=== PATIENT | female | born 1930 | race Caucasian/White ===

== ENCOUNTER → 2017-01-10 | Outpatient (CLI) | payer MEDICARE, BC ==
[2017-01-10 11:36] LABS: Anisocytosis Slight; CH 33.9; CHCM 33.6; HCT 39.7 % (34.0-46.0); HDW 3.25; HGB 12.9 gm/dL (11.4-16.0); MCH 32.9 pg (25.0-35.0); MCHC 32.5 g/dL (31.0-37.0); MCV 101.2 fL (80.0-100.0); Macrocytosis Slight; Mean Platelet Volume 8.1; RBC 3.92 m/uL (3.80-5.40); RDW 18.3 % (11.5-15.5); WBC 7.1 k/uL (3.8-10.6)
[2017-01-10 11:44] LABS: INR 1.1 (<1.2); Partial Thromboplastin Time 24.4 sec (22.0-30.0); Prothrombin Time 10.8 sec (9.0-12.0)
[2017-01-10 11:46] LABS: ALT 30 U/L (9-52); AST 20 U/L (14-36); Alkaline Phosphatase 52 U/L (38-126); Anion Gap 10 mmol/L; Blood Urea Nitrogen 14 mg/dL (7-17); Calcium 9.7 mg/dL (8.4-10.2); Carbon Dioxide 29 mmol/L (22-30); Chloride 104 mmol/L (98-107); Glucose 123 mg/dL (74-99); Non-African American GFR(MDRD) 58 (>60 ml/min/1.73 sqM); Potassium 4.7 mmol/L (3.5-5.1); Sodium 143 mmol/L (137-145); Total Bilirubin 0.8 mg/dL (0.2-1.3); Total Protein 7.5 g/dL (6.3-8.2)
[2017-01-10 11:58] LABS: Appearance,Urine Clear (Clear); Bilirubin,Urine Negative (Negative); Glucose,Urine (UA) Negative (Negative); Ketones,Urine Negative (Negative); Leukocyte Esterase,Urine Moderate (Negative); Nitrite,Urine Negative (Negative); PH, Urine 6.5 (5.0-8.0); Particle Count 1630; Protein,Urine Negative (Negative); RBC,Urine 1 /hpf (0-5); Specific Gravity,Urine 1.004 (1.001-1.035); Squamous Epithelial Cell,Urine <1 /hpf (0-4); UA Billing (MACRO vs. MICRO) MICRO; Urobilinogen,Urine <2.0 mg/dL (<2.0); WBC,Urine 6 /hpf (0-5)
== END ==
LOC: LABPAT 11:08
PROVIDERS: ATTEND Orthopaedic Surgery
DX: Z01.812 Encounter for preprocedural laboratory examination (principal); Z51.81 Encounter for therapeutic drug level monitoring; Z79.01 Long term (current) use of anticoagulants
CPT/HCPCS: 80053; 81001; 85027; 85610; 85730; 87070

== ENCOUNTER 2017-01-20 08:36 | Inpatient (IN) | payer MEDICARE, BC ==
[2017-01-14 16:13] VITALS: BMI 33.5
--- NOTE | 2017-01-16 19:07 | CONS ---
CONSULTATION REASON FOR CONSULTATION: Preoperative medical evaluation. HISTORY OF PRESENT ILLNESS: This 86-year-old female is scheduled to undergo knee surgery. The patient has significant pain. Her surgery is scheduled on 01/20/2017. She is going to have a left total knee arthroplasty. The patient has increasing pain and decreasing functional status of the knee. In view of this, she was evaluated by Dr. Ojeda and now scheduled for surgery. The patient denies any recent infections, bleeding disorder. She has had a previous history of pulmonary embolism. She is not on any anticoagulation at present except ( ) baby aspirin. The patient perioperatively will require anticoagulation. The patient does have a history of previous injury to her ankle requiring surgery. There were no significant complications after that surgery. The patient does have a history of gastroesophageal reflux with occasional symptoms. She was hospitalized back in 2012 for chest pain, and stress testing was unremarkable. PAST MEDICAL HISTORY: 1. As mentioned above, history of pulmonary embolism. 2. History of hypertension, controlled. 3. Degenerative arthritis. 4. Obesity. PAST SURGICAL HISTORY: Past surgical history is significant for: 1. Right ankle ORIF. 2. Hysterectomy. 3. Appendectomy. PERSONAL HISTORY: Never a smoker. Alcohol none. ALLERGIES: PENICILLIN, which causes her hives. MEDICATIONS: Medications include: 1. Simvastatin 20 mg daily. 2. Atenolol 50 mg daily. 3. Xanax 0.25 mg p.r.n. daily. 4. Cetirizine 10 mg p.r.n. 5. Ultracet p.r.n. for pain. SOCIAL HISTORY: The patient is single. She lives alone. FAMILY MEDICAL HISTORY: Father at age 77 with history of gastric carcinoma. Mother at the age of 103. She had ASHD. Her brother at the age of 80 with ASHD and diabetes mellitus. A sister at age of 79 following a fall. The patient has a sister, 77, with a history of frequent falls and a sister, 75, in good health. No children. REVIEW OF SYSTEMS: NEURO: Denies any headaches, dizziness. No double vision, blurred vision. No symptoms of TIA, syncope, seizures. PSYCH: No anxiety or depression. CARDIAC: Denies chest pain, angina, palpitations. RESPIRATORY: Denies shortness of breath, cough, hemoptysis. Does have dyspnea on exertion, which is stable, with no worsening symptoms. GI: No nausea, vomiting, abdominal pain, diarrhea, constipation, hematochezia or melena. : No symptoms of dysuria, hematuria, urgency, frequency. EXTREMITIES: Has pain in the left knee. CONSTITUTIONAL: No fever or chills. HEMATOLOGICAL: No anemia or bleeding disorder. ENDOCRINE: No history of diabetes mellitus, hypothyroidism. SKIN: No rashes or open sores. MUSCULOSKELETAL: Present complaint of pain in the left knee and arthritic pains (). ENT: Adequate hearing and taste. EYES: Adequate vision. PHYSICAL EXAMINATION: Elderly female who appears younger than her stated age, in no distress. Moderately obese. Vital signs revealed blood pressure 130/70. She is 5 feet 2 inches tall, weighs 197 pounds. BMI 33.8. HEENT: Normocephalic. Neck is supple. Pupils reactive. Nostrils are clear. Oral cavity is moist. Ears reveal no drainage. NECK: No JVD, carotid bruits or thyromegaly. CHEST EXAMINATION: Clear to auscultation and percussion. CARDIAC: Normal S1, S2 with no gallops. Systolic murmur 2/6, left sternal border and apex. ABDOMEN: Soft. No palpable masses. Bowel sounds normal. No organomegaly. No abdominal bruits. Obese abdomen. Extremities reveal no edema. Good pulses, both upper and lower extremities. Neurologically awake, alert, oriented with well-coordinated movements, both upper extremities. Decreased range of motion of the left knee. LABORATORY ASSESSMENT: EKG which revealed sinus bradycardia with no acute changes. Recent chemistry was done. I did review the (). Random blood sugar 128. Normal hepatic function. Adequate renal function with a GFR of 59, CKD of II. Hemoglobin was 12.6. ASSESSMENT: 1. Hypertension, controlled. 2. Sinus bradycardia. 3. Degenerative arthritis. 4. History of hyperlipidemia, on medical therapy. 5. Chronic kidney disease II. PLAN: The patient is stable. Continue present medical management. Patient's condition was discussed with the patient. Prognosis remains guarded. She is stable to undergo the planned surgical procedure. The patient to continue atenolol perioperatively. DVT prophylaxis is a must in this patient with previous history of pulmonary embolism. MMODL / IJN: [id number] /
[~2017-01-20 08:36] MED LIST: ACETAMINOPHEN TAB 500 MG TAB PO ONE; DEXAMETHASONE SOD PHOSPHATE 10 MG/ML 1 ML VIAL IV ONE; HYDROmorphone 1 MG/ML 1 ML SYRINGE IVP PRN; LIDOCAINE 1% 20 ML VIAL (10MG/ML) FOR IV START INTRADERMA PRN; MELOXICAM 7.5 MG TAB PO ONE; MIDAZOLAM 2 MG/2 ML VIAL IV PRN; ONDANSETRON 4 MG/2 ML VIAL IVP ONE; ROPIVACAINE 246.25 MG, EPINEPHrine 0.5 MG, KETOROLAC 30 MG, cloNIDine HCL/PF 80 MCG, WA... MISCELLANE ONE; SCOPOLAMINE 1.5MG/72HR PATCH TRANSDERM ONE; TRANEXAMIC ACID 1,000 MG in SODIUM CHLORIDE 0.9% 100 ML IVPB ONE; ceFAZolin 2 GM in SODIUM CHLORIDE 0.9% 100 ML IVPB ONE
[2017-01-20] MEDS: LACTATED RINGERS 1,000 ML IV SCH (10:06)
[2017-01-20] MEDS ORDERED: MIDAZOLAM 2 MG/2 ML VIAL IVP ONE (10:45)
[2017-01-20] MEDS ORDERED: ROPIVACAINE 1,100 MG, SODIUM CHLORIDE 0.9% 330 ML MISCELLANE PRN ×2 (11:07)
--- NOTE | 2017-01-20 11:07 | P.ONQ ---
Anesthesiology Proc Note - PNB - Peripheral Nerve Block Performed Left Adductor Canal Infusion Indication: Acute Post-Operative Pain, Analgesia Sedation Type: Sedate with meaningful contact maintained Preparation: Sterile Dressing Position: Supine Needle Types: Other (see comment) (breana) Needle Size: 100mm (4") Technique: Ultrasound Injectate: 0.5% Ropivacaine (see comment for volume) Blood Aspirated: No Pain Paresthesia on Injection Noted: No Resistance on Injection: Normal
[2017-01-20] MEDS ORDERED: SODIUM CHLORIDE 0.9% 100 ML BAG ONE (11:18)
[2017-01-20] MEDS ORDERED: TRANEXAMIC ACID 1,000 MG/10 ML VIAL ONE (11:18)
[2017-01-20] MEDS ORDERED: LIDOCAINE 0.5% (PF) 5 MG/ML (50 ML SDV) ONE (11:18)
[2017-01-20] MEDS ORDERED: LACTATED RINGERS 1,000 ML IV ONE (13:04)
[2017-01-20] MEDS ORDERED: HYDROmorphone 1 MG/ML 1 ML SYRINGE IVP PRN ×3 (13:15)
[2017-01-20] MEDS ORDERED: HYDROcodone/APAP 5-325MG 1 EACH TAB PO PRN (13:15)
[2017-01-20] MEDS ORDERED: ONDANSETRON 4 MG/2 ML VIAL IVP PRN (13:15)
[2017-01-20] MEDS ORDERED: MAGNESIUM HYDROXIDE 2,400 MG/10 ML CUP PO PRN (13:15)
[2017-01-20] MEDS ORDERED: NA PHOS,M-B/NA PHOS,DI-BA 133 ML ENEMA RECTAL PRN (13:15)
[2017-01-20] MEDS ORDERED: BISACODYL 10 MG SUPP RECTAL PRN (13:15)
[2017-01-20] MEDS ORDERED: hydrOXYzine PAMOATE 25 MG CAP PO PRN (13:15)
[2017-01-20] MEDS ORDERED: DIAZEPAM 5 MG TAB PO PRN ×2 (13:15)
[2017-01-20] MEDS ORDERED: NALOXONE 0.4 MG/ML 1 ML VIAL IV PRN (13:15)
--- NOTE | 2017-01-20 13:39 | XR ---
EXAMINATION TYPE: XR knee limited LT DATE OF EXAM: 01/20/2017 CLINICAL HISTORY: Postoperative evaluation Two views of the left knee are submitted. Identified are changes of total knee arthroplasty with fem oral and tibial components appearing well seated. Postsurgical soft tissue changes are noted. Align ment is anatomic.
--- NOTE | 2017-01-20 14:44 | P.OP ---
Date of Procedure: 01/20/17 Preoperative Diagnosis: Severe osteoarthritis left knee Postoperative Diagnosis: Severe osteoarthritis left knee Procedure(s) Performed: Left total knee arthroplasty Implants: Roach and Nephew Oxinium femoral component size 4, left Roach & Nephew Madeline II left nonporous tibial baseplate size 4 Roach [employer] Nephew size 9 mm Legion XLPE constrained articular insert, size 3-4 Roach [employer] Nephew Madeline II resurfacing patellar component, 29 mm All components were cemented using Vee bone cement.. The articulation is ceramic on polyethylene. Anesthesia: spinal Surgeon: Jasper Ojeda Survey Statistician #1: Emilia Bolaños Estimated Blood Loss (ml): 50 Pathology: other (Bone and cartilage) Condition: stable Disposition: PACU Indications for Procedure: After failure of conservative treatment we discussed the surgical and nonsurgical treatment options at length. Patient wishes to proceed with a total knee arthroplasty. Complications specific to this procedure were discussed at length, including but not limited to infection, bleeding, stiffness , and nerve injury. Patient is aware of all these complications and informed consent was obtained Operative Findings: The operative findings are consistent with severe osteoarthritis of the left knee Description of Procedure: Patient was seen in the preoperative area consent was reviewed and operative site was marked with a skin marker. Patient was then brought to the operating room and given preoperative antibiotics intravenously. A spinal anesthetic was administered by the anesthesia department. A tourniquet was placed on the upper thigh and the lower extremity was prepped and draped in usual sterile fashion. A gram of transexamic acid was given. A universal timeout was then performed which confirmed the patient's name, surgical site, ALLERGIES, and consent. The lower extremity was then exsanguinated and tourniquet was inflated to 250 mmHg. A standard and anterior midline approach to the knee was performed. The skin and subcutaneous tissue was dissected down to the patellar tendon. A medial parapatellar arthrotomy was then performed. The knee was then extended, the patellar was everted, and the knee was again flexed. Anterior horns of both menisci were excised, and a minimal medial release was performed because of the valgus deformity of the knee.. On gross visual inspection, there was complete loss of articular cartilage in all 3 compartments of the knee. There was also significant cartilage damage in the lateral compartment. There were multiple periarticular osteophytes which were then removed with a Ronguer. The femoral canal was then opened with the appropriate drill, and the intramedullary femoral cutting guide was then placed and set for 4 of valgus. The distal femoral cutting block was then pinned in place, and the distal femur was then cut. The cutting block was then removed and the cut was checked for flatness. Next, the sizing guide was then placed and set for 3 external rotation based off of the epicondylar axis and Whitesides line. After the femur was sized, the appropriate 4-in-1 cutting block was then pinned in place. The anterior condyles were cut without notching. The posterior and chamfer cuts were performed while protecting the collateral ligaments. The cutting block was then removed. Attention was then directed to the tibia. The remaining ACL was removed with a Ronguer, and the tibia was then gently subluxed forward with a large bent knee retractor. Any remaining menisci was excised. The posterior lateral corner was cauterized in order to cauterize the lateral geniculate artery. The extra medullary tibial cutting guide was then placed, set for the appropriate rotation , slope, and depth of resection. The proximal tibia cutting guide was then pinned in place. Proximal tibia was then cut and sized. The femoral trial was then placed. The box cutting guide was placed and then using the appropriate reamer, the bone was reamed for the box. Then the box osteotome was used to finish the reaming. Next trials were then placed with the appropriate-sized insert. The knee was able to fully extend and flex to 130 and was stable throughout all range of motion. The knee was then extended, patella everted. Patella was then measured, and then using an osteotomy guide, the patella was cut at the appropriate level. The patella was then measured and drilled and the patella trial was then placed. The knee was then taken through range of motion with the patella trial and the patella tracked normally. The knee was then extended patella trial was then removed and the patella was everted. Knee was then flexed and lug holes were drilled through the femoral trial and the femoral trial was then removed. The tibial was then exposed, and the tibial broach guide was then pinned in place after it was set for the appropriate rotation to allow for the most coverage without overhang. The tibia was then broached. The cut surfaces of bone were then irrigated with pulsatile lavage. The posterior structures were injected with the ropivacaine solution. The components were then opened, the cement was mixed, and the components were then cemented in place. The cement was allowed to harden with the knee in full extension. While the cement was hardening, the remaining soft tissues were injected with the ropivacaine solution. After the cemented hardened. The tourniquet was released, and hemostasis was obtained. A second gram of transexamic acid was given. The knee was again irrigated. The knee was again taken through range of motion and found to be stable throughout all range of motion of 0-130, and the patella tracked normally. The fascia was then closed with #2 strata fix suture. The subcutaneous tissue was closed with 3-0 Vicryl and 3-0 strata fix. Dermabond tape was used for the skin, and the patient was placed in a sterile dressing. Patient was then transferred to recovery room in stable condition. The physicians assistant RANDI Altamirano was required due the complexity surgery and the need for a skilled manager surgical. She assisted in positioning, draping, retraction, and closure of the wound.
[2017-01-20] MEDS ORDERED: ALPRAZolam 0.25 MG TAB PO PRN (16:10)
[2017-01-20] MEDS: SODIUM CHLORIDE 0.9% 1,000 ML IV SCH (16:55)
[2017-01-20] MEDS ORDERED: WARFARIN 5 MG TAB PO ONE (18:00)
[2017-01-20] MEDS: ceFAZolin 2 GM in SODIUM CHLORIDE 0.9% 100 ML IVPB SCH (18:14)
[2017-01-20] MEDS: SENNOSIDES-DOCUSATE SODIUM 1 EACH TAB PO SCH (20:40)
[2017-01-20] MEDS: ATORVASTATIN 10 MG TAB PO SCH (20:40)
[2017-01-20] MEDS: ATENOLOL 25 MG TAB PO SCH (20:40)
[2017-01-21] MEDS: ceFAZolin 2 GM in SODIUM CHLORIDE 0.9% 100 ML IVPB SCH (03:17)
[2017-01-21] MEDS: HYDROcodone/APAP 5-325MG 1 EACH TAB PO PRN ×3 (04:56→20:37)
[2017-01-21] MEDS: LACTATED RINGERS 1,000 ML IV SCH (06:24)
[2017-01-21] MEDS: SODIUM CHLORIDE 0.9% 1,000 ML IV SCH (06:25)
[2017-01-21 06:55] LABS: INR 1.8 (<1.2); Prothrombin Time 17.2 sec (9.0-12.0)
[2017-01-21 07:12] LABS: Anisocytosis Slight; Basophils % (A) 0 %; CH 32.9; CHCM 32.5; Eosinophils % (A) 0 %; HDW 3.39; Hypochromasia Slight; Luc # (Auto) 0.15; Luc % (Auto) 1; Lymphocytes # (A) 1.1 k/uL (1.0-4.8); Lymphocytes % (A) 10 %; MCH 33.4 pg (25.0-35.0); MCV 101.2 fL (80.0-100.0); Macrocytosis Slight; Mean Platelet Volume 7.4; Monocytes # (A) 0.8 k/uL (0-1.0); Monocytes % (A) 8 %; Neutrophils % (A) 81 %; RBC 2.96 m/uL (3.80-5.40); RDW 17.8 % (11.5-15.5); WBC 11.1 k/uL (3.8-10.6)
[2017-01-21 07:19] LABS: HGB 9.9 gm/dL (11.4-16.0)
[2017-01-21] MEDS: ATENOLOL 25 MG TAB PO SCH ×2 (08:50→20:29)
[2017-01-21] MEDS: ENOXAPARIN 40 MG/0.4 ML SYRINGE SQ SCH (08:51)
[2017-01-21] MEDS: LORATADINE 10 MG TAB PO SCH (08:51)
[2017-01-21] MEDS: MELOXICAM 7.5 MG TAB PO SCH (08:52)
--- NOTE | 2017-01-21 08:52 | PN ---
PROGRESS NOTE CHIEF COMPLAINT: Re-evaluation. HISTORY OF PRESENT ILLNESS: This is an 86-year-old female who was admitted to the hospital and undergone left total knee arthroplasty. The patient is doing well. She has a underlying history of hypertension. She also has had a previous history of pulmonary embolism. The patient in view of this is recommended for DVT prophylaxis. REVIEW OF SYSTEMS: NEURO: Denies any headaches, dizziness. PSYCH: No anxiety. CARDIAC: No chest pain, angina, palpitation. RESPIRATORY: No shortness of breath, cough, hemoptysis. GI: No nausea, vomiting, abdominal pain, diarrhea. : No symptoms of dysuria or hematuria. EXTREMITIES: Denies pain. CONSTITUTIONAL: No fever or chills. PHYSICAL EXAMINATION: Pleasant female in no distress. Vital signs reveals temperature 97.1, pulse 66, respirations 16, blood pressure 115/51, pulse ox 94% room air. HEENT: Normocephalic. NECK: No JVD. Chest is clear to auscultation. CARDIAC: Normal S1, S2 with no gallops, murmurs. ABDOMEN: Soft. Bowel sounds present. EXTREMITIES: No edema. Good pulses both upper extremities and pedal pulses. NEUROLOGIC: Awake, alert, oriented with well-coordinated movements both upper extremities. LABORATORY ASSESSMENT: None new. ASSESSMENT: 1. Hypertension, controlled. 2. Status post left total knee arthroplasty. 3. Previous history of pulmonary embolism. PLAN: The patient is stable, continue present medical regimen. The patient will be started on Lovenox subcutaneous starting tomorrow morning. Prognosis remains guarded. MMODL / IJN: [id number] /
--- NOTE | 2017-01-21 09:13 | P.PN ---
Subjective Principal diagnosis: This is an 86-year-old female who is status post left total knee arthroplasty. This is postoperative day #1. Patient is seen and evaluated at bedside with Dr. Jasper Ojeda. Patient does complain of pain today but states she has been up and walking. Patient denies any numbness, weakness, tingling, fever/ chills. Objective - Vital Signs Vital signs: Vital Signs Temp 98.0 F 01/21/17 07:00 Pulse 60 01/21/17 07:00 Resp 14 01/21/17 07:00 BP 109/55 01/21/17 07:00 Pulse Ox 100 01/21/17 07:00 Intake & Output 01/20/17 01/21/17 01/21/17 18:59 06:59 18:59 Intake Total 1300 1870 Output Total 50 500 Balance 1250 1370 Weight 88.451 kg Intake: IV 1300 Intake, IV Titration 1280 Amount Sodium Chloride 0.9% 1, 480 000 ml @ 60 mls/hr IV . [id number] SABRINA Rx#:[id number] ceFAZolin 2 gm In Sodium 800 Chloride 0.9% 100 ml @ 100 mls/hr IVPB Q8H S[facility] Rx#:[id number] Oral 590 Output: Urine 500 Estimated Blood Loss 50 Other: # Voids 2 - Exam Vital signs are stable. Patient is in no acute distress and is alert and oriented 3. Calf is soft and nontender. Dressing is clean, dry, and intact. Neurovascular status intact. Patient has full foot and ankle motion. - Labs CBC & Chem 7: 01/21/17 06:30 Labs: Abnormal Lab Results - Last 24 Hours (Table) 01/21/17 01/21/17 Range/Units 06:30 06:30 WBC 11.1 H (3.8-10.6) k/uL RBC 2.96 L (3.80-5.40) m/uL Hgb 9.9 L D (11.4-16.0) gm/dL Hct 30.0 L (34.0-46.0) % MCV 101.2 H (80.0-100.0) fL RDW 17.8 H (11.5-15.5) % Neutrophils # 9.0 H (1.3-7.7) k/uL PT 17.2 H (9.0-12.0) sec INR 1.8 H (<1.2) Assessment and Plan (1) Primary osteoarthritis of left knee Status: Acute (2) S/P total knee arthroplasty Status: Acute Plan: #1 Continue with routine postoperative care. #2 Anticoagulation with Coumadin. #3 Physical therapy and CPM today. #4 Appreciate input from medicine. #5 Anticipate discharge to rehab likely Thursday.
--- NOTE | 2017-01-21 11:57 | P.PN ---
Progress Note - Text POD#1 S/P Rt TKA. rt knee pain is tolerated with a combination of ACB and oral analgesics.
[2017-01-21] MEDS ORDERED: ACETAMINOPHEN TAB 325 MG TAB PO PRN ×2 (15:22)
[2017-01-21] MEDS ORDERED: KETOROLAC 30 MG/ML 1 ML VIAL IVP PRN (15:24)
[2017-01-21] MEDS ORDERED: WARFARIN 2.5 MG TAB PO ONE (18:00)
[2017-01-21] MEDS: ATORVASTATIN 10 MG TAB PO SCH (20:28)
[2017-01-21] MEDS: SENNOSIDES-DOCUSATE SODIUM 1 EACH TAB PO SCH (20:29)
[2017-01-22] MEDS: HYDROcodone/APAP 5-325MG 1 EACH TAB PO PRN (04:30)
--- NOTE | 2017-01-22 08:15 | PN ---
PROGRESS NOTE CHIEF COMPLAINT: Re-evaluation. HISTORY OF PRESENT ILLNESS: This is an 86-year-old female, status post left total knee arthroplasty. She is actually doing well. She denies any major symptoms. REVIEW OF SYSTEMS: NEURO: Denies any headaches, dizziness. PSYCH: No anxiety. CARDIAC: No chest pain, angina, palpitation. RESPIRATORY: No shortness of breath, cough. GI: No nausea, vomiting, abdominal pain, diarrhea. : No symptoms of dysuria, hematuria. EXTREMITIES: Denies pain. CONSTITUTIONAL: No fever, chills. PHYSICAL EXAMINATION: Pleasant female in no distress. Vital signs reveal temperature 98, pulse 60, respirations 14, blood pressure 109/55, pulse ox 100% on room air. HEENT: Normocephalic. NECK: No JVD. CHEST: Clear to auscultation and percussion. CARDIAC: Normal S1, S2 with no gallops, murmurs. ABDOMEN: Soft. Bowel sounds present. EXTREMITIES: Reveal no edema. Good pulses both upper and lower extremities and pedal pulses. Neurologically awake, alert, oriented, well-coordinated movements in both upper extremities. LABORATORY ASSESSMENT: CBC shows a hemoglobin of 9.9, INR is 1.8. ASSESSMENT: 1. Anemia secondary to acute blood loss. 2. Hypertension, controlled. 3. Degenerative arthritis, status post left knee arthroplasty. 4. Remote history of pulmonary embolism. PLAN: The patient is stable. Continue present medical regimen. Patient's condition discussed with the patient. Prognosis is guarded. The patient probably will be transferred to rehab, hopefully tomorrow. Meanwhile, the patient is on Lovenox at present as well. Await notation. Upon discharge, Lovenox will be discontinued and the patient will be continued on Coumadin. Patient's condition discussed with the patient. Prognosis is guarded. MMODL / IJN: [id number] /
[2017-01-22] MEDS: MELOXICAM 7.5 MG TAB PO SCH (08:25)
[2017-01-22] MEDS: ENOXAPARIN 40 MG/0.4 ML SYRINGE SQ SCH (08:25)
[2017-01-22] MEDS: LORATADINE 10 MG TAB PO SCH (08:25)
[2017-01-22] MEDS: ATENOLOL 25 MG TAB PO SCH ×2 (08:25→20:28)
[2017-01-22] MEDS: LACTATED RINGERS 1,000 ML IV SCH (08:31)
[2017-01-22] MEDS ORDERED: HYDROcodone/APAP 7.5-325MG 1 EACH TAB PO PRN (09:33)
--- NOTE | 2017-01-22 09:35 | P.PN ---
Subjective Principal diagnosis: This is an 86-year-old female who is status post left total knee arthroplasty. This is postoperative day #1. Patient is seen and evaluated at bedside with Dr. Jasper Ojeda. Patient does complain of pain today but states she has been up and walking. Patient denies any numbness, weakness, tingling, fever/ chills. This is a pleasant 86-year-old female who is status post left total knee arthroplasty. This is postoperative day #2. Patient still complains of pain in the left knee as expected. Patient has been up and walking with physical therapy. Patient denies any new complaints today. Objective - Vital Signs Vital signs: Vital Signs Temp 98.1 F 01/22/17 07:00 Pulse 95 01/22/17 07:00 Resp 16 01/22/17 07:00 BP 135/68 01/22/17 07:00 Pulse Ox 96 01/22/17 07:00 Intake & Output 01/21/17 01/22/17 01/22/17 18:59 06:59 18:59 Intake Total 750 500 Output Total 1000 Balance 750 -500 Weight 88.451 kg Intake: Intake, IV Titration 330 Amount Sodium Chloride 0.9% 1, 330 000 ml @ 60 mls/hr IV . [id number] S[facility]RINA Rx#:[id number] Oral 420 500 Output: Urine 1000 Other: Voiding Method Bedside Commode # Voids 2 - Exam Vital signs are stable. Patient is in no acute distress and is alert and oriented 3. Calf is soft and nontender. Dressing is clean, dry, and intact. Neurovascular status intact. Patient has full foot and ankle motion. - Labs CBC & Chem 7: 01/21/17 06:30 Assessment and Plan (1) Primary osteoarthritis of left knee Status: Acute (2) S/P total knee arthroplasty Status: Acute Plan: #1 Continue with routine postoperative care. #2 Anticoagulation with Coumadin. #3 Physical therapy and CPM today. #4 Appreciate input from medicine. #5 Anticipate discharge to rehab likely Thursday.
[2017-01-22 09:49] LABS: Prothrombin Time 28.9 sec (9.0-12.0)
[2017-01-22] MEDS: HYDROcodone/APAP 7.5-325MG 1 EACH TAB PO PRN ×2 (14:50→21:34)
[2017-01-22] MEDS: SODIUM CHLORIDE 0.9% 1,000 ML IV SCH (15:10)
[2017-01-22] MEDS: SENNOSIDES-DOCUSATE SODIUM 1 EACH TAB PO SCH (20:28)
[2017-01-22] MEDS: ATORVASTATIN 10 MG TAB PO SCH (20:28)
--- NOTE | 2017-01-22 23:30 | PN ---
PROGRESS NOTE CHIEF COMPLAINT: Re-evaluation. HISTORY OF PRESENT ILLNESS: This is an 86-year-old female who was admitted to the hospital and underwent a left total knee arthroplasty. The patient did not sleep well through the night and feels tired out this morning. Does have some pain, but tolerable. REVIEW OF SYSTEMS: NEURO: Denies any headaches, dizziness. PSYCH: No anxiety. CARDIAC: No chest pain, angina, palpitations. RESPIRATORY: No shortness of breath, cough. GI: No nausea, vomiting, abdominal pain, diarrhea. : No significant dysuria, hematuria, urgency, frequency. EXTREMITIES: No pain except for the knee. CONSTITUTIONAL: No fever chills. PHYSICAL EXAMINATION: Pleasant female in no distress. VITAL SIGNS: Temperature 98.1, pulse 95, respirations 16, blood pressure 135/68, pulse ox of 96% on room air. HEENT: Normocephalic. NECK: Supple. No JVD. CHEST: Clear to auscultation. CARDIAC: Normal S1, S2 with no gallops. Systolic murmur 2/6, left sternal border. ABDOMEN: Soft. Bowel sounds present. Extremities reveal no edema. Left knee decreased range of motion. NEUROLOGICAL: Awake, alert, oriented with well-coordinated movements. LABORATORY ASSESSMENT: None new. INR 3.0. ASSESSMENT: 1. Anemia secondary to acute blood loss. 2. Degenerative joint disease, status post left total knee arthroplasty. 3. Hypertension, controlled. 4. Previous history of pulmonary embolism. PLAN: The patient is stable. Continue present medical regimen. Patient's condition is discussed with the patient. The patient is planned for transfer to nursing facility for rehab. Recommend continue anticoagulation for at least about 3 weeks' duration or until she gets ambulating fairly well. Prognosis remains guarded. MMODL / IJN: [id number] /
[2017-01-23] MEDS: HYDROcodone/APAP 7.5-325MG 1 EACH TAB PO PRN ×2 (04:30→11:36)
[2017-01-23] MEDS: LACTATED RINGERS 1,000 ML IV SCH (05:17)
[2017-01-23] MEDS: ATENOLOL 25 MG TAB PO SCH (08:18)
[2017-01-23] MEDS: MELOXICAM 7.5 MG TAB PO SCH (08:18)
[2017-01-23] MEDS: LORATADINE 10 MG TAB PO SCH (08:18)
[2017-01-23] MEDS: ENOXAPARIN 40 MG/0.4 ML SYRINGE SQ SCH (08:19)
[2017-01-23 08:23] LABS: Anisocytosis Slight; Basophils % (A) 1 %; CH 33.3; CHCM 32.1; Eosinophils # (A) 0.1 k/uL (0-0.7); Eosinophils % (A) 2 %; HCT 31.2 % (34.0-46.0); HDW 3.21; Hypochromasia Slight; Luc # (Auto) 0.14; Luc % (Auto) 2; Lymphocytes # (A) 1.4 k/uL (1.0-4.8); Lymphocytes % (A) 23 %; MCH 33.1 pg (25.0-35.0); MCHC 31.9 g/dL (31.0-37.0); MCV 103.8 fL (80.0-100.0); Macrocytosis Moderate; Mean Platelet Volume 7.9; Monocytes # (A) 0.6 k/uL (0-1.0); Monocytes % (A) 10 %; Neutrophils # (A) 3.8 k/uL (1.3-7.7); Neutrophils % (A) 62 %; RBC 3.01 m/uL (3.80-5.40); RDW 18.1 % (11.5-15.5); WBC 6.1 k/uL (3.8-10.6); WBC (Perox) 6.35
[2017-01-23 08:26] LABS: INR 2.7 (<1.2); Prothrombin Time 25.6 sec (9.0-12.0)
--- NOTE | 2017-01-23 08:53 | P.DS ---
Providers Date of admission: 01/20/17 09:24 Expected date of discharge: 01/23/17 Attending physician: Jasper Ojeda Consults: 01/20/17 13:15 Consult Physician Routine Consulting Provider: Moises Martinez Consult Reason/Comments: medical management Do you want consulting provider notified?: Yes Primary care physician: Stated None - Discharge Diagnosis(es) (1) Primary osteoarthritis of left knee Current Visit: Yes Status: Acute (2) S/P total knee arthroplasty Current Visit: Yes Status: Acute Hospital Course: This is a 86-year-old female with known history of degenerative arthritis of the left knee. The patient presents for evaluation. After discussion and consideration patient elects to proceed with total knee arthroplasty. The patient is seen preoperatively by Dr. Ojeda and cleared for surgery. Patient is admitted to [facility] on 01/20/2017 for total knee arthroplasty. The procedures performed without complication or sequelae. The patient is doing well postoperatively. Labs and vital signs are stable on day of discharge. On day of discharge patient's knee incision is healing well. There is minimal erythema. There is no drainage noted at this time. There is minimal soft tissue swelling to the knee. Patient has full foot and ankle motion without difficulty or pain. Neurovascular status to the left lower extremity is intact. Patient is discharged to rehab in good condition. Please see med rec for accurate list of home medications. Plan - Discharge Summary New Discharge Prescriptions: New Acetaminophen Tab [Tylenol] 650 mg PO Q6HR PRN tab PRN Reason: Fever and/ or Pain 4-6 Bisacodyl [Dulcolax] 10 mg RECTAL DAILY PRN suppositor PRN Reason: Constipation HYDROcodone/APAP 5-325MG [[place] 5-325] 2 each PO Q6HR PRN #0 tab PRN Reason: Pain Scale 6 To 10 HYDROcodone/APAP 7.5-325MG [[place] 7.5-325] 1 - 2 tab PO Q4-6H PRN #90 tab PRN Reason: Pain Sennosides-Docusate Sodium [Senokot-S] 1 tab PO BID #60 tablet Warfarin Sodium [Coumadin] 2.5 mg PO DAILY #30 tablet Continue Simvastatin [Zocor] 20 mg PO HS Atenolol 25 mg PO BID Cetirizine HCl 10 mg PO DAILY ALPRAZolam [Xanax] 0.25 mg PO DAILY PRN PRN Reason: Agitation Or Acute Anxiety Discharge Medication List Atenolol 25 mg PO BID 09/16/13 [History] Simvastatin [Zocor] 20 mg PO HS 09/16/13 [History] ALPRAZolam [Xanax] 0.25 mg PO DAILY PRN 10/24/13 [History] Cetirizine HCl 10 mg PO DAILY 10/24/13 [History] Acetaminophen Tab [Tylenol] 650 mg PO Q6HR PRN tab 01/22/17 [Rx] Bisacodyl [Dulcolax] 10 mg RECTAL DAILY PRN suppositor 01/22/17 [Rx] HYDROcodone/APAP 5-325MG [[place] 5-325] 2 each PO Q6HR PRN #0 tab 01/22/17 [Rx] HYDROcodone/APAP 7.5-325MG [[place] 7.5-325] 1 - 2 tab PO Q4-6H PRN #90 tab [Rx] Sennosides-Docusate Sodium [Senokot-S] 1 tab PO BID #60 tablet 01/23/17 [Rx] Warfarin Sodium [Coumadin] 2.5 mg PO DAILY #30 tablet 01/23/17 [Rx] Follow up Appointment(s)/Referral(s): Jasper Ojeda DO [Doctor of Osteopathic Medicine] - 2 Weeks Ambulatory/Diagnostic Orders: Continuous Passive Motion (CPM) Machine [DME.AMB1] Time Frame: 2 Weeks, Location : Determined By Patient Prothrombin Time INR [LAB.AMB] Time Frame: 4 Weeks, Location: Determined By Patient Activity/Diet/Wound Care/Special Instructions: Weightbearing as tolerated with a walker CPM 5-6h daily Daily dressing changes, keep incision clean and dry May shower if no drainage from incision [facility] with questions or concerns [phone] Discharge Disposition: TRANSFER TO SNF/ECF
[2017-01-23 09:15] VITALS: BP 111/64; PULSE 95; RESP 14; TEMP 98.7
--- NOTE | 2017-01-24 07:56 | PN ---
PROGRESS NOTE ATTENDING PHYSICIAN: Dr. Ojeda. CHIEF COMPLAINT: Reevaluation. HISTORY OF PRESENT ILLNESS: This is an 86-year-old female who was admitted to the hospital and undergo left total knee arthroplasty. She is doing relatively well. She has pain in the left knee. Otherwise, she was able to sleep through the night. REVIEW OF SYSTEMS: Neuro denies any headaches or dizziness. Psych no anxiety. Cardiac no chest pain, angina, palpitations. Respiratory: No shortness of breath, cough. GI no nausea, vomiting, abdominal pain. No bowel movement. : No symptoms of dysuria or hematuria. Extremities: No pain or edema. Constitutional: No fever or chills. PHYSICAL EXAMINATION: Pleasant female who presents in no distress. Vital signs reveals temperature 98.7, pulse 95, respirations 14, blood pressure 111/64. HEENT: Normocephalic. NECK: Supple. No JVD. CHEST: Clear to auscultation and percussion. Cardiac: Normal S1, S2 with no gallops or murmurs. ABDOMEN: Soft. Bowel sounds normal. Extremities reveal no edema. Good pulses upper extremities and pedal pulses. Left knee post surgery. Neurological is awake, alert, oriented with well coordinated movements upper extremities. LABORATORY DATA: Assessment revealed CBC which shows a hemoglobin of 10, INR 2.7. ASSESSMENT: 1. Anemia secondary to acute blood loss post surgery. 2. Anticoagulated status. 3. Status post left knee arthroplasty. 4. History of hypertension, on medical therapy. 5. History of hyperlipidemia, on medical therapy. PLAN: The patient is stable. Continue present medical regimen. Patient is planned for discharge to nursing facility for rehab. The patient will continue Coumadin for the next 3 years or if she becomes fully ambulated to discontinue. She has had a previous pulmonary embolism. MMODL / IJN: [id number] /
== END 2017-01-23 13:30 | DRG 470 ==
LOC: 2ORMAIN 09:24 → 3SUR 13:13
PROVIDERS: ADMIT Orthopaedic Surgery; ATTEND Orthopaedic Surgery
PROC: 0SRD0J9 Replacement of Left Knee Joint with Synthetic Substitute, Cemented, Open Approach (ICD-10-PCS; principal; 2017-01-20 11:00)
DX: M17.12 Unilateral primary osteoarthritis, left knee (principal); D62 Acute posthemorrhagic anemia; R00.1 Bradycardia, unspecified; I12.9 Hypertensive chronic kidney disease with stage 1 through stage 4 chronic kidney disease, or unspecified chronic kidney disease; E78.5 Hyperlipidemia, unspecified; K21.9 Gastro-esophageal reflux disease without esophagitis; E66.9 Obesity, unspecified; N18.2 Chronic kidney disease, stage 2 (mild); Z79.01 Long term (current) use of anticoagulants; Z80.0 Family history of malignant neoplasm of digestive organs; Z82.49 Family history of ischemic heart disease and other diseases of the circulatory system; Z83.3 Family history of diabetes mellitus; Z86.711 Personal history of pulmonary embolism; Z79.899 Other long term (current) drug therapy
CPT/HCPCS: 85025; 85610; 88300

== ENCOUNTER 2017-03-18 06:40 | Emergency (ER) | payer MEDICARE, BC ==
[2017-03-18] MEDS ORDERED: HYDROcodone/APAP 5-325MG 1 EACH TAB PO STA (07:11)
--- NOTE | 2017-03-18 07:15 | ED ---
Fall HPI - General Chief Complaint: Fall Stated Complaint: Fall Time Seen by Provider: 03/18/17 07:03 Source: patient Mode of arrival: EMS - History of Present Illness Initial Comments: Patient states that she was walking with her walker, when she slipped, and landed on her buttock. She states it was a mechanical fall. She did not hit her head. She has no neck pain or stiffness. She had no loss of consciousness. She has no lightheadedness, dizziness, nausea or vomiting. She has no focal weakness. She has no change in vision or hearing. She has taken no medication for this. She has pain in the right hip. It does not radiate. Nothing makes it better or worse. She took no medications for that. - Related Data Home Medications Medication Instructions Recorded Confirmed Simvastatin [Zocor] 20 mg PO HS 09/16/13 03/18/17 ALPRAZolam [Xanax] 0.25 mg PO DAILY PRN 10/24/13 03/18/17 Previous Rx's Medication Instructions Recorded Acetaminophen Tab [Tylenol] 650 mg PO Q6HR PRN tab 01/22/17 Warfarin Sodium [Coumadin] 2.5 mg PO DAILY #30 tablet 01/23/17 Allergies Allergy/AdvReac Type Severity Reaction Status Date / Time Penicillins Allergy Unknown Rash/Hives Verified 03/18/17 08:30 Review of Systems ROS Statement: Those systems with pertinent positive or pertinent negative responses have been documented in the HPI. ROS Other: All systems not noted in ROS Statement are negative. Past Medical History Past Medical History: Deep Vein Thrombosis (DVT), Hyperlipidemia, Hypertension, Osteoarthritis (OA), Pneumonia, Pulmonary Embolus (PE), Skin Disorder Additional Past Medical History / Comment(s): MURMUR, ECZEMA History of Any Multi-Drug Resistant Organisms: None Reported Past Surgical History: Appendectomy, Hysterectomy, Joint Replacement Additional Past Surgical History / Comment(s): RT ANKLE BROKEN HAS ADAN/SCREWS. left knee replacement in 01/2017 Past Anesthesia/Blood Transfusion Reactions: No Reported Reaction Additional Past Anesthesia/Blood Transfusion Reaction / Comment(s): PAST BLOOD TRANSFUSION 50 YEARS AGO Past Psychological History: No Psychological Hx Reported Smoking Status: Never smoker Past Alcohol Use History: None Reported Past Drug Use History: None Reported - Past Family History Sister(s) Family Medical History: Cancer General Exam Limitations: physical limitation Course Vital Signs 03/18/17 06:41 Temperature 98.1 F Pulse Rate 73 Respiratory 18 Rate Blood Pressure 154/70 O2 Sat by Pulse 95 Oximetry Medical Decision Making - Medical Decision Making Patient presents with an accidental mechanical fall. Her laboratory workup is all negative. Her imaging is all negative. She is feeling better. There is no evidence of an acute emergency. She is stable for discharge. - Lab Data Result diagrams: 03/18/17 07:00 03/18/17 07:00 Lab Results 03/18/17 03/18/17 03/18/17 Range/Units 07:00 07:00 07:00 WBC 4.6 (3.8-10.6) k/uL RBC 3.60 L (3.80-5.40) m/uL Hgb 11.8 (11.4-16.0) gm/dL Hct 37.3 (34.0-46.0) % MCV 103.7 H (80.0-100.0) fL MCH 32.8 (25.0-35.0) pg MCHC 31.6 (31.0-37.0) g/dL RDW 18.6 H (11.5-15.5) % Plt Count 238 (150-450) k/uL Hypochromasia Moderate Anisocytosis Slight Macrocytosis Moderate PT 13.1 H (9.0-12.0) sec INR 1.3 H (<1.2) APTT 21.9 L (22.0-30.0) sec Sodium 142 (137-145) mmol/L Potassium 4.1 (3.5-5.1) mmol/L Chloride 108 H (98-107) mmol/L Carbon Dioxide 24 (22-30) mmol/L Anion Gap 10 mmol/L BUN 14 (7-17) mg/dL Creatinine 0.83 (0.52-1.04) mg/dL Est GFR (MDRD) Af Amer >60 (>60 ml/min/1.73 sqM) Est GFR (MDRD) Non-Af >60 (>60 ml/min/1.73 sqM) Glucose 101 H (74-99) mg/dL Calcium 9.9 (8.4-10.2) mg/dL Troponin I (0.000-0.034) ng/mL 03/18/17 Range/Units 07:00 WBC (3.8-10.6) k/uL RBC (3.80-5.40) m/uL Hgb (11.4-16.0) gm/dL Hct (34.0-46.0) % MCV (80.0-100.0) fL MCH (25.0-35.0) pg MCHC (31.0-37.0) g/dL RDW (11.5-15.5) % Plt Count (150-450) k/uL Hypochromasia Anisocytosis Macrocytosis PT (9.0-12.0) sec INR (<1.2) APTT (22.0-30.0) sec Sodium (137-145) mmol/L Potassium (3.5-5.1) mmol/L Chloride (98-107) mmol/L Carbon Dioxide (22-30) mmol/L Anion Gap mmol/L BUN (7-17) mg/dL Creatinine (0.52-1.04) mg/dL Est GFR (MDRD) Af Amer (>60 ml/min/1.73 sqM) Est GFR (MDRD) Non-Af (>60 ml/min/1.73 sqM) Glucose (74-99) mg/dL Calcium (8.4-10.2) mg/dL Troponin I <0.012 (0.000-0.034) ng/mL 03/18/17 07:16 Twelve-lead EKG is obtained, interpreted by me showing ventricular rate 69 bpm, slightly prolonged SD interval, normal QRS complexes, no ST elevation or depression, interpreted by me as a normal sinus rhythm with first degree AV block. Disposition Clinical Impression: Fall Disposition: HOME SELF-CARE Condition: Good Instructions: Fall Prevention for Older Adults (ED) Referrals: Moises Martinez MD [Primary Care Provider] - 1-2 days Time of Disposition: 09:14
[2017-03-18 07:34] LABS: Anion Gap 10 mmol/L; Blood Urea Nitrogen 14 mg/dL (7-17); Calcium 9.9 mg/dL (8.4-10.2); Carbon Dioxide 24 mmol/L (22-30); Chloride 108 mmol/L (98-107); Glucose 101 mg/dL (74-99); Non-African American GFR(MDRD) >60 (>60 ml/min/1.73 sqM); Potassium 4.1 mmol/L (3.5-5.1); Sodium 142 mmol/L (137-145)
[2017-03-18 07:35] LABS: INR 1.3 (<1.2); Partial Thromboplastin Time 21.9 sec (22.0-30.0); Prothrombin Time 13.1 sec (9.0-12.0)
[2017-03-18 07:48] LABS: Anisocytosis Slight; CH 32.6; CHCM 31.4; HCT 37.3 % (34.0-46.0); HDW 3.38; HGB 11.8 gm/dL (11.4-16.0); Hypochromasia Moderate; MCH 32.8 pg (25.0-35.0); MCHC 31.6 g/dL (31.0-37.0); MCV 103.7 fL (80.0-100.0); Macrocytosis Moderate; Mean Platelet Volume 7.5; RDW 18.6 % (11.5-15.5); WBC 4.6 k/uL (3.8-10.6)
--- NOTE | 2017-03-18 08:16 | CT ---
EXAMINATION TYPE: CT brain roxann petty DATE OF EXAM: 03/18/2017 COMPARISON: NONE HISTORY: Fall injury with headache and neck pain. CT DLP: 1528.8 mGycm. Automated Exposure Control for Dose Reduction was Utilized. TECHNIQUE: CT scan of the head and cervical spine are performed without contrast. FINDINGS: There is no acute intracranial hemorrhage or midline shift identified. There is ventricul ar and sulcal prominence consistent with diffuse cerebral atrophy. The globes are intact and the vis ualized sinuses are clear. The calvarium is intact. Cervical spine is visualized in its entirety from C1 through upper thoracic levels and demonstrates s atisfactory alignment without evidence of acute fracture or dislocation. Prevertebral soft tissue ap pears within normal limits. The C1-C2 articulation is within normal limits on the coronal images. The body heights are maintained. There is mild to moderate disc space narrowing with mild spurring C5 -C6 level. No large posterior disc herniations are present on sagittal images. Axial images at C3-C4 level show central disc protrusion mildly effacing anterior thecal sac on axial image 22. Axial images at C4-C5 level show right-sided uncovertebral facet degenerative changes and central dis c protrusion mildly effacing anterior thecal sac, bilateral neural foramina remain patent. Axial images at C5-C6 level show uncovertebral facet degenerative changes bilaterally contributing to mild left greater than right neural foraminal narrowing with posterior spur disc complex effacing an terior thecal sac. Axial images at other levels are felt within normal limits. Thyroid gland is unremarkable. Visualized lung apices are clear. IMPRESSION: 1. There is no acute fracture or dislocation evident in the cervical spine. 2. No acute intracranial hemorrhage or midline shift is seen. There is background moderate diffuse ce rebral atrophy noted.
--- NOTE | 2017-03-18 08:31 | XR ---
EXAMINATION TYPE: XR chest 1V portable DATE OF EXAM: 03/18/2017 COMPARISON: Chest x-ray October 24, 2013 HISTORY: Chest pain after fall injury. TECHNIQUE: Single frontal view of the chest is obtained. FINDINGS: There is some chronic parenchymal change without suspicious focal air space opacity, pleur al effusion, or pneumothorax seen. The cardiac silhouette size is mildly enlarged. The osseous str uctures are somewhat demineralized. IMPRESSION: Chronic changes and cardiomegaly without acute pulmonary process.
--- NOTE | 2017-03-18 08:32 | XR ---
EXAMINATION TYPE: XR knee complete LT DATE OF EXAM: 03/18/2017 CLINICAL HISTORY: Left knee pain after fall injury. TECHNIQUE: Three views of the left knee are obtained. COMPARISON: Left knee x-ray January 20, 2017 FINDINGS: There is no acute fracture/dislocation evident in left knee. Metallic hardware from left k nee arthroplasty remains satisfactory in position. The overlying soft tissue appears unremarkable. IMPRESSION: There is no acute fracture or dislocation in the left knee prosthesis.
--- NOTE | 2017-03-18 08:33 | XR ---
EXAMINATION TYPE: XR Hip Bilateral Complete DATE OF EXAM: 03/18/2017 CLINICAL HISTORY: Bilateral hip pain after fall injury. TECHNIQUE: AP and frogleg views of the bilateral hips are obtained. COMPARISON: None. FINDINGS: There is no acute fracture/dislocation evident in either hip. There is mild to moderate sy mmetric joint space loss in both hips. There is mild left-sided acetabular spurring. There are scatte red pelvic phleboliths bilaterally. Pubic symphysis is maintained. IMPRESSION: There is no acute fracture or dislocation in either hip.
[2017-03-18 10:47] VITALS: BP 133/56; PULSE 78; RESP 20; TEMP 97.9
== END 2017-03-18 10:30 | disposition home or self-care (01) ==
LOC: EC 06:40
DX: M25.551 Pain in right hip (principal); E78.5 Hyperlipidemia, unspecified; Z96.652 Presence of left artificial knee joint; Z86.711 Personal history of pulmonary embolism; Z86.718 Personal history of other venous thrombosis and embolism; Z79.899 Other long term (current) drug therapy; Z88.0 Allergy status to penicillin; W01.0XXA Fall on same level from slipping, tripping and stumbling without subsequent striking against object, initial encounter; Y93.01 Activity, walking, marching and hiking
CPT/HCPCS: 36415; 70450; 71010; 72125; 73521; 80048; 84484; 85027; 85610; 85730; 93005; 99285